=== PATIENT | female | born 1955 | race Caucasian/White ===

== ENCOUNTER → 2016-07-28 | Outpatient (CLI) | payer BC ==
[~2016-07-28] MED LIST: CLC100X PO; PRLSR20 PO; PRM/625 PO; ZOLP1TAB PO; [UNRECOGNIZED DRUG - CODE] PO
--- NOTE | 2016-07-28 13:01 | DIAGNOSTIC IMAGING REPORT ---
CHEST 2 VIEWS ROUTINE CLINICAL HISTORY: Atypical chest pain. Cough. COMPARISON STUDY: 01/19/2014 FINDINGS: The cardiac and mediastinal contours are normal. There is no evidence of focal pulmonary consolidation. There is no evidence of failure. No pleural effusions are visualized.[ There is a mild scoliosis. IMPRESSION: No active disease in the chest. Electronically signed by: Zen Fry M.D. 07/28/2016 12:59 PM Dictated Date/Time: 07/28/2016 12:59 PM
== END | disposition home or self-care (01) ==
LOC: C.RAD1850 11:58
PROVIDERS: ATTEND Physician Assistant Medical
DX: R05 Cough (principal); R07.9 Chest pain, unspecified

== ENCOUNTER → 2016-12-09 | Outpatient (CLI) | payer BC ==
--- NOTE | 2016-12-10 07:58 | MAMMOGRAPHY REPORT ---
BILATERAL DIGITAL SCREENING MAMMOGRAM TOMOSYNTHESIS WITH CAD: 12/09/2016 CLINICAL HISTORY: Routine screening. TECHNIQUE: Breast tomosynthesis in addition to standard 2D mammography was performed. Current study was also evaluated with a Computer Aided Detection (CAD) system. COMPARISON: Comparison is made to exams dated: 11/15/2015 mammogram, 10/23/2014 mammogram, 10/20/2013 m ammogram, 10/18/2012 mammogram, 08/07/2011 mammogram, and 07/16/2010 mammogram - [facility]. BREAST COMPOSITION: The tissue of both breasts is heterogeneously dense, which may obscure small mas ses. FINDINGS: The parenchymal pattern is similar to prior mammograms. No developing mass, architectural distortion or cluster of suspicious microcalcifications is seen in either breast. IMPRESSION: ACR BI-RADS CATEGORY 2: BENIGN There is no mammographic evidence of malignancy. A 1 year screening mammogram is recommended. The pa tient will receive written notification of the results. Approximately 10% of breast cancers are not detected with mammography. A negative mammographic report should not delay biopsy if a clinically suggestive mass is present. Betina Mcclendon M.D. ay/:12/09/2016 16:17:26 Linen Room Custodian: Fernie GODINEZ(Santosh)(Genaro), [facility] letter sent: Normal 1/2 BI-RADS Code: ACR BI-RADS Category 2: Benign
== END | disposition home or self-care (01) ==
LOC: C.MAMM 13:57
PROVIDERS: ATTEND Obstetrics & Gynecology
DX: Z12.31 Encounter for screening mammogram for malignant neoplasm of breast (principal)

== ENCOUNTER → 2017-01-01 | Outpatient (CLI) | payer BC ==
--- NOTE | 2017-01-01 14:46 | DIAGNOSTIC IMAGING REPORT ---
CT SCAN OF THE PARANASAL SINUSES CLINICAL HISTORY: Chronic sinusitis. Headache. COMPARISON STUDY: Radiographs of the paranasal sinuses dated 08/09/2015. TECHNIQUE: High-resolution CT scan of the paranasal sinuses is performed. Images are reviewed in the axial, sagittal, and coronal planes. IV contrast was not administered for this examination. A dose lowering technique was utilized adhering to the principles of ALARA. The examination is performed using the fusion protocol. CT DOSE: 879.04 mGycm FINDINGS: Maxillary antra: Clear bilaterally. Anterior ethmoid sinuses: Clear. Posterior ethmoid sinuses: Clear. Sphenoid sinuses: Mild mucosal thickening is seen on the right. Clear on the left. Frontal sinuses: Clear. Ostiomeatal complexes: Patent bilaterally. Frontoethmoidal and sphenoethmoidal recesses: Patent bilaterally. Carotid arteries: The carotid arteries are protuberant but covered. There is a septal attachment on the right. Ethmoid roofs: There is slightly asymmetric elevation of the right ethmoid roof as compared to the left. Nasal turbinates: Normal in appearance. Nasal septum: There is mild rightward deviation of the bony nasal septum small leftward facing spurs. Optic nerves: Covered. Orbits: The bony orbits are intact. Orbital contents are normal in appearance. Calvarium: The imaged calvarium is normal in appearance Mastoid air cells: Well pneumatized. Brain parenchyma: Partially visualized brain parenchyma is within normal limits. IMPRESSION: No significant paranasal sinus disease. See above. Electronically signed by: Dudley Dumont M.D. 01/01/2017 2:45 PM Dictated Date/Time: 01/01/2017 2:42 PM
== END | disposition home or self-care (01) ==
LOC: C.CTS 13:43
DX: J32.3 Chronic sphenoidal sinusitis (principal); R51 Headache

== ENCOUNTER → 2017-03-23 | Outpatient (CLI) | payer BC ==
[2017-03-23 13:00] LABS: BASO % 0.6 %; BASO ABS # 0.04 K/uL (0-0.2); COMPLETE YES; EOS % 0.6 %; HEMATOCRIT 39.4 % (37-47); IG% 0.3 %; LYMPH ABS # 1.14 K/uL (1.2-3.4); MEAN CELL VOLUME 87.8 fL (80-100); MEAN CORPUSCULAR HEMOGLOBIN 28.7 pg (25-34); MEAN CORPUSCULAR HGB CONC 32.7 g/dl (32-36); MEAN PLATELET VOLUME 11.4 fL (7.4-10.4); MONO % 5.2 %; NEUT % 77.3 %; PLATELET COUNT 219 K/uL (130-400); RED BLOOD COUNT 4.49 M/uL (4.2-5.4); WHITE BLOOD COUNT 7.11 K/uL (4.8-10.8)
[2017-03-23 16:40] LABS: BLOOD UREA NITROGEN 17 mg/dl (7-18); BUN/CREATININE RATIO 19.7 (10-20); CALCIUM 9.4 mg/dl (8.5-10.1); CARBON DIOXIDE 27 mmol/L (21-32); CHLORIDE 104 mmol/L (98-107); CREATININE 0.88 mg/dl (0.60-1.20); GLUCOSE 102 mg/dl (70-99); POTASSIUM 4.1 mmol/L (3.5-5.1); SODIUM 139 mmol/L (136-145)
[2017-03-24 07:15] LABS: ESTIMATED AVERAGE GLUCOSE 114 mg/dl; HA1C FLAG Normal (Normal)
== END | disposition home or self-care (01) ==
LOC: C.LAB1850 11:14
PROVIDERS: ATTEND Family Medicine
DX: D64.9 Anemia, unspecified (principal)

== ENCOUNTER → 2017-05-04 | Outpatient (CLI) | payer BC ==
--- NOTE | 2017-05-04 14:02 | DIAGNOSTIC IMAGING REPORT ---
CHEST 2 VIEWS ROUTINE CLINICAL HISTORY: J18.9 Community acquired [id number] COMPARISON STUDY: 07/28/2016 FINDINGS: The heart is normal in size. There is no failure. There is no lobar consolidation. There are no pleural effusions. There is subtle increase in the lingular markings. 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 This could be atelectatic or secondary to a minimal pneumonitis. Electronically signed by: Zen Fry M.D. 05/04/2017 2:00 PM Dictated Date/Time: 05/04/2017 1:59 PM
== END | disposition home or self-care (01) ==
LOC: C.RAD 13:32
PROVIDERS: ATTEND Physician Assistant Medical
DX: J18.9 Pneumonia, unspecified organism (principal); R05 Cough

== ENCOUNTER → 2017-05-07 | Outpatient (CLI) | payer BC ==
--- NOTE | 2017-05-07 09:24 | DIAGNOSTIC IMAGING REPORT ---
CHEST 2 VIEWS ROUTINE CLINICAL HISTORY: J18.9 [id number] COMPARISON STUDY: 05/04/2017 FINDINGS: The cardiac and mediastinal contours remain stable. Minimally prominent lingular markings persist. Again this could be atelectatic or represent only minimal pneumonitis. There is no failure. There are no pleural effusions.[ IMPRESSION: No change from the prior study. Minimal nonspecific lingular opacities persist. Electronically signed by: eZn Fry M.D. 05/07/2017 9:23 AM Dictated Date/Time: 05/07/2017 9:22 AM
== END | disposition home or self-care (01) ==
LOC: C.RAD1850 09:13
PROVIDERS: ATTEND Physician Assistant Medical
DX: J18.9 Pneumonia, unspecified organism (principal)

== ENCOUNTER → 2017-07-13 | Outpatient (CLI) | payer BC ==
--- NOTE | 2017-07-13 09:50 | DIAGNOSTIC IMAGING REPORT ---
CHEST 2 VIEWS ROUTINE CLINICAL HISTORY: 62 years-old Female presenting with J18.9 [id number]. TECHNIQUE: PA and lateral views of the chest were obtained. COMPARISON: 05/07/2017. FINDINGS: Cardiomediastinal silhouette normal. Persistent bandlike opacity in the lingula, unchanged. No new focal opacity. No pleural effusion or pneumothorax. Osseous structures normal. Upper abdomen normal. IMPRESSION: 1. Unchanged lingular scarring. No new focal infiltrate to suggest acute cardiopulmonary disease. Electronically signed by: Armand Juarez M.D. 07/13/2017 9:49 AM Dictated Date/Time: 07/13/2017 9:48 AM
== END | disposition home or self-care (01) ==
LOC: C.RAD1850 09:39
PROVIDERS: ATTEND Physician Assistant Medical
DX: J18.9 Pneumonia, unspecified organism (principal)

== ENCOUNTER → 2017-09-01 | Outpatient (CLI) | payer BC ==
[2017-09-01 15:12] LABS: ALBUMIN 3.9 gm/dl (3.4-5.0); ALT/SGPT 26 U/L (12-78); BLOOD UREA NITROGEN 12 mg/dl (7-18); CALCIUM 9.3 mg/dl (8.5-10.1); CARBON DIOXIDE 28 mmol/L (21-32); CREATININE 0.77 mg/dl (0.60-1.20); GLUCOSE 89 mg/dl (70-99); SODIUM 139 mmol/L (136-145)
[2017-09-01 15:15] LABS: ALKALINE PHOSPHATASE 45 U/L (45-117); AST/SGOT 22 U/L (15-37); TOTAL PROTEIN 7.3 gm/dl (6.4-8.2)
== END | disposition home or self-care (01) ==
LOC: C.LAB 13:48
PROVIDERS: ATTEND Urology
DX: N20.0 Calculus of kidney (principal)

== ENCOUNTER → 2017-09-07 | Outpatient (CLI) | payer BC | END | disposition home or self-care (01) | LOC: C.PAPS 11:03 | PROVIDERS: ATTEND Obstetrics & Gynecology | DX: Z01.419 Encounter for gynecological examination (general) (routine) without abnormal findings (principal) ==

== ENCOUNTER → 2017-12-10 | Outpatient (CLI) | payer BC ==
--- NOTE | 2017-12-11 15:41 | MAMMOGRAPHY REPORT ---
BILATERAL DIGITAL SCREENING MAMMOGRAM TOMOSYNTHESIS WITH CAD: 12/10/2017 CLINICAL HISTORY: Routine screening. TECHNIQUE: The study was acquired using full field digital technology and interpreted from soft copy. Breast tomosynthesis in addition to standard 2D mammography was performed. Current study was also ev aluated with a Computer Aided Detection (CAD) system. COMPARISON: Comparison is made to exams dated: 12/09/2016 mammogram, 11/15/2015 mammogram, 10/23/2014 m ammogram, 10/20/2013 mammogram, 10/18/2012 mammogram, and 08/07/2011 mammogram - [facility]. BREAST COMPOSITION: The tissue of both breasts is heterogeneously dense, which may obscure small mass es. FINDINGS: No suspicious masses, calcifications, or areas of architectural distortion are noted in either breast . There has been no significant interval change compared to prior exams. IMPRESSION: ACR BI-RADS CATEGORY 1: NEGATIVE There is no mammographic evidence of malignancy. A 1 year screening mammogram is recommended.( 019) The patient will receive written notification of the results. Some breast cancers are not detected with mammography. A negative mammographic report should not snow y biopsy if a clinically suggestive mass is present. Yani Francois M.D. ah/:12/10/2017 15:47:32 Manager Stone: RT Esau(Santosh)(M), [facility] letter sent: Normal 1/2 BI-RADS Code: ACR BI-RADS Category 1: Negative
== END | disposition home or self-care (01) ==
LOC: C.MAMM 14:54
PROVIDERS: ATTEND Obstetrics & Gynecology
DX: Z12.31 Encounter for screening mammogram for malignant neoplasm of breast (principal)